=== PATIENT | female | born 1940 | race Caucasian/White ===

== ENCOUNTER 2019-04-18 19:37 | Emergency (ER) | payer MEDICARE, OTHER ==
[~2019-04-18] VITALS: Ht 167.6 cm; Wt 115.0 kg
[~2019-04-18 19:37] MED LIST: [UNRECOGNIZED DRUG - REMARK]
[2019-04-18 20:09] VITALS: Ht 167.6 cm; Wt 115.0 kg
[2019-04-18] MEDS ORDERED: HYDR-4011 PO (21:20)
--- NOTE | 2019-04-18 21:21 | ERD ---
ER Documentation Chief Complaint Chief Complaint LEFT ANKLE PAIN FROM OLD INJURY, SEEKS PAIN INJECTION--EMPLOYEE RELATIVE HPI 79-year-old female presenting with chronic left ankle pain from an old injury many years ago. She went to see an ankle specialist recently and had an injection into her ankle which has not helped with her pain. She has tried multiple different pain medications without much relief. The only medication that helped her was [place]. She has an appointment tomorrow with an orthopedist again. Denies any recent surgeries. Recently had x-rays of her ankle which she has on CD. ROS All systems reviewed and are negative except as per history of present illness. Medications Home Meds Active Scripts Hydrocodone/Acetaminophen ([place] 5-325 Tablet) 1 Each Tablet, 1 TAB PO Q6H PRN for PAIN, #10 TAB Prov:ARA GARCIA MD 04/18/19 Reported Medications [Cant Remember Meds] No Conflict Check 01/26/11 Allergies Allergies: Coded Allergies: No Known Allergies (Verified Allergy, Mild, 01/26/11) PMhx/Soc History of Surgery: No Anesthesia Reaction: No Hx Neurological Disorder: No Hx Respiratory Disorders: No Hx Cardiac Disorders: Yes (HTN) Hx Psychiatric Problems: No Hx Miscellaneous Medical Probl: No Hx Alcohol Use: No Hx Substance Use: No Hx Tobacco Use: No FmHx Family History: No diabetes Physical Exam Vitals Vital Signs Date Temp Pulse Resp B/P (MAP) Pulse Ox O2 O2 Flow FiO2 Time Delivery Rate 04/18/19 98.0 78 17 189/79 96 Room Air 22:30 (115) 04/18/19 98.0 80 18 199/99 95 20:09 (132) Physical Exam INITIAL VITAL SIGNS: Reviewed by me GENERAL: Well appearing, non toxic, speaking in full sentences. HEENT: Atraumatic, Moist mucous membranes NECK: Supple. RESPIRATORY: No respiratory distress. EXTREMITIES: No clubbing or cyanosis. No edema. Left lower extremity with no evidence of joint swelling. Full range of motion at all joints. No erythema of skin. 2+ DP and PT pulses. Bones nontender to palpation. SKIN: Warm, dry. NEUROLOGIC: Alert and awake. Strength and sensations intact in all 4 ex tremities. Results 24 hrs Current Medications Medications Dose Sig/Fabiano Start Time Status Last (Trade) Ordered Route PRN Stop Time Admin Dose Reason Admin 1 tab ONCE ONCE 04/18/19 DC 04/18/19 Acetaminophen PO 21:30 21:38 / 04/18/19 21:31 Hydrocodone Bitart ([place] ()) Procedures/MDM Patient is presenting with chronic left ankle pain. There is no evidence of joint effusion, septic joint, gout, or acute fracture or dislocation. I recommended she follow-up with the orthopedist as scheduled for tomorrow. I gave her a [place] here and will give her a small prescription for [place] until she is able to follow-up. Return precautions were given. She was given a boot to help with pain and ambulation. Patient's blood pressure was elevated (>120/80) but appears stable without evidence of hypertension emergency or urgency. The patient was counseled about the risks of hypertension and urged to pursue outpatient monitoring and therapy within a week with their primary care physician. Departure Diagnosis: Primary Impression: Chronic pain of left ankle Condition: Stable Patient Instructions: Arthralgia ARA GARCIA MD April 18, 2019 21:21
[2019-04-18] MEDS ORDERED: HYDROCODONE/APAP (5/325) TAB PO ONE (21:30)
[2019-04-18 22:30] VITALS: BP 189/79; PULSE 78; RESP 17
== END 2019-04-18 22:30 | disposition home or self-care (01) ==
LOC: FTE 19:37
DX: M25.572 Pain in left ankle and joints of left foot (principal); I10 Essential (primary) hypertension
CPT/HCPCS: 99283; L4386